=== PATIENT | male | born 1960 | race Caucasian/White ===

== ENCOUNTER → 2019-02-25 13:35 | Outpatient (CLI) | payer BC, SELFPAY ==
--- NOTE | ~2019-02-25 | XR_ITS ---
XR hip RT min 3V w AP pelvis DATE: 02/25/2019 13:50 INDICATION: Right lower quadrant and pelvic pain. Pelvic and right hip pain. TECHNIQUE: AP pelvis. AP, lateral and crosstable lateral views of right hip COMPARISON: None FINDINGS: The pubic symphysis and sacroiliac joints are intact. Hip joint spaces are symmetric and we ll preserved. No pelvic fracture or right hip fracture or dislocation. No evidence of avascular necro sis or bone destruction. IMPRESSION: Negative pelvis and right hip Reviewed, dictated and finalized at location B. N GARDENING SPECIALIST
== END ==
PROVIDERS: PCP Internal Medicine; Visit Provider Internal Medicine
DX: R10.31 Right lower quadrant pain (principal)
CPT/HCPCS: 73502

== ENCOUNTER 2019-11-12 06:55 | Outpatient (NON) | payer BC, SELFPAY ==
[2019-11-12 18:16] LABS: SARS-CoV-2 RNA PCR Negative
== END 2019-11-12 06:56 ==
PROVIDERS: PCP Internal Medicine; Visit Provider Internal Medicine
DX: Z20.828 Contact with and (suspected) exposure to other viral communicable diseases (principal)
CPT/HCPCS: 87635; C9803; U0003

== ENCOUNTER → 2020-01-06 10:13 | Outpatient (CLI) | payer BC, SELFPAY ==
--- NOTE | ~2020-01-06 | XR_ITS ---
EXAMINATION: XR wrist LT w scaphoid DATE: 01/06/2020 10:33 INDICATION: Left wrist pain. TECHNIQUE: 5 views of left wrist were obtained. COMPARISON: None. FINDINGS: Bone alignment is normal. No fracture. There is a benign bone island in distal ulna. There is mild osteoarthritis of triscaphe joint, severe osteoarthritis of the capitate-lunate joint, and mo derate osteoarthritis of first carpometacarpal joint. IMPRESSION: 1. Polyarticular osteoarthritis. Reviewed, dictated and finalized at location A. 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
== END ==
PROVIDERS: PCP Internal Medicine; Visit Provider Surgery Plastic and Reconstructive Surgery
DX: M19.032 Primary osteoarthritis, left wrist (principal)
CPT/HCPCS: 73110

== ENCOUNTER 2020-01-23 12:14 | Outpatient (CLI) | payer BC, SELFPAY ==
--- NOTE | ~2020-01-23 | XR_ITS ---
EXAMINATION: XR md joint inject/asp w image DATE: 01/23/2020 14:10 INDICATION: Left wrist osteoarthritis. TECHNIQUE: A time-out was performed to verify the patient's name, date of , and procedure to b e performed. The procedure including the risks, benefits, and alternatives was discussed with the pat ient. Risks discussed included bleeding and infection. The patient understood the risks and agreed to proceed. The skin overlying the left midcarpal joint compartment was prepped and draped in usual st erile fashion. Anesthetic was administered with 1% lidocaine subcutaneously. A 23 G needle was adva nced under fluoroscopic guidance into the joint. Subsequently, injectate consisting of 1.4 mL 6 mg/mL betamethasone, 0.1 mL Omnipaque 240, and 0.2 mL 1%lidocaine was instilled. The needle was removed a nd the entry site was cleaned and dressed. There were no immediate complications. Fluoroscopy exposu re time was 0.1 minutes. The total number of images was 2. FINDINGS: Real-time fluoroscopy demonstrates the needle in the left midcarpal joint compartment. Nakita ent's pain prior to procedure: 5/10. Patient's pain following the procedure: 0/10. IMPRESSION: 1. Fluoroscopy guided left midcarpal joint compartment injection of local anesthetic and steroid with decrease in the patient's presenting pain. Reviewed, dictated and finalized at location A. KLE CHASER IMPRESSION: 1. Fluoroscopy guided left midcarpal joint compartment injection of local anest hetic and steroid with decrease in the patient's presenting pain.
== END 2020-01-23 12:15 | disposition home or self-care (01) ==
PROVIDERS: PCP Internal Medicine; Visit Provider Plastic Surgery
DX: M19.032 Primary osteoarthritis, left wrist (principal)
CPT/HCPCS: 20605; 77002; J0702; Q9966